=== PATIENT | male | born 1955 | race Hispanic/Latino ===

== ENCOUNTER 2021-08-25 08:36 | Outpatient (CLI) | payer BC ==
[2021-08-25 09:13] LABS: Blood Urea Nitrogen 14 mg/dL (9-20)
--- NOTE | 2021-08-25 10:03 | Cat Scan Report ---
CTA CHEST (AORTIC ANEURYSM) INDICATION / CLINICAL INFORMATION: THORACIC AORTIC ANEURYSM OMNI 350 100 ML. TECHNIQUE: Axial CT images were obtained through the chest after injection of 100 cc of Omnipaque 350 IV contrast. 3 plane MIP and/or 3D reconstructions were produced. All CT scans at this location are performed using CT dose reduction for ALARA by means of automated exposure control. COMPARISON: None available. FINDINGS: HEART: - Size: Normal. - [place] Coronary Atherosclerosis: None. - Pericardium: No pericardial effusion. THORACIC AORTA: - Dissection: No dissection. - Aneurysm: No aneurysm or pseudoaneurysm. The ascending thoracic aorta measures a maximum of 3.4 cm in diameter. The descending thoracic aorta near the aortic hiatus is slightly ectatic but no aneurysm . - Atherosclerosis: No significant atherosclerosis. GREAT VESSELS: No acute abnormality. No significant atherosclerosis. PULMONARY ARTERIES: No pulmonary emboli. CHEST VEINS: Single SVC of normal caliber as visualized to the right of midline. No significant abnor mality. ADDITIONAL CHEST FINDINGS: No significant additional findings. UPPER ABDOMEN: 3 cm cyst in the superior right kidney. SKELETAL SYSTEM: Mild thoracic spondylosis. IMPRESSION: No evidence for thoracic aortic aneurysm. The descending thoracic aorta is mildly ectatic. Signer Name: Gerard Mcbride Jr, MD Signed: 08/25/2021 9:59 AM Workstation Name: [id number]
== END 2021-08-25 08:37 | disposition home or self-care (01) ==
LOC: CT 08:36
PROVIDERS: ATTEND Internal Medicine
DX: I71.2 Thoracic aortic aneurysm, without rupture (principal); N28.1 Cyst of kidney, acquired; M47.814 Spondylosis without myelopathy or radiculopathy, thoracic region
CPT/HCPCS: 36415; 71275; 82565; 84520; Q9967